=== PATIENT | male | born 1980 | race Two or more races ===

== ENCOUNTER 2023-08-11 13:51 | Inpatient (IN) | payer OTHER ==
[2023-08-11] MEDS ORDERED: COLLOIDAL OATMEAL 1 BAR EACH TP PRN (19:34)
[2023-08-11] MEDS ORDERED: ACETAMINOPHEN 325 MG TABLET (FP) PO PRN (19:34)
[2023-08-11] MEDS ORDERED: POLYETHYLENE GLYCOL (HEALTHYLAX) 3350 17 GM PACKET PO PRN (19:34)
[2023-08-11] MEDS ORDERED: NALOXONE HCL 0.4 MG/ML VIAL IM PRN (19:34)
[2023-08-11] MEDS ORDERED: IBUPROFEN 400 MG TABLET (FP) PO PRN (19:34)
[2023-08-11] MEDS ORDERED: MAG HYDROX/AL HYDROX/SIMETH 30 ML UNIT-DOSE CUP PO PRN (19:34)
[2023-08-11] MEDS ORDERED: P-EPHED 60MG/TRIPROLIDI 2.5MG TABLET PO PRN (19:34)
[2023-08-11] MEDS ORDERED: LOPERAMIDE HCL 2 MG CAPSULE PO PRN (19:34)
[2023-08-11] MEDS ORDERED: NALOXONE HCL (KLOXXADO) 8 MG SPRAY NS PRN (19:34)
[2023-08-11] MEDS ORDERED: guaiFENesin 600 MG TABLET.ER (FP) PO PRN (19:34)
[2023-08-11] MEDS ORDERED: BENZONATATE 200 MG CAPSULE PO PRN (19:34)
[2023-08-11] MEDS ORDERED: BENZOCAINE/MENTHOL (CHLORASEPTIC ) LOZENGE MM PRN (19:34)
[2023-08-11] MEDS ORDERED: MAGNESIUM HYDROX 2400MG/30ML ORAL SUSPENSION 30 ML CUP PO PRN (19:34)
[2023-08-11] MEDS: MELATONIN 5 MG TABLETS PO SCH (21:53)
[2023-08-11] MEDS: THIAMINE HCL 100 MG TABLET (FP) PO SCH (21:54)
[2023-08-11] MEDS ORDERED: TUBERCULIN PPD 5 TU/0.1ML VIAL ID ONE (22:21)
[2023-08-11] MEDS ORDERED: TUBERCULIN PPD 5 TU/0.1ML SYRINGE (IN PATIENT USE ONLY) ID ONE (23:35)
[2023-08-12] MEDS: PRENATAL VITAMINS W/ FOLIC ACID TABLET (FP) PO SCH (10:08)
[2023-08-12 10:53] LABS: HEMATOCRIT 41.6 % (35.4-49); HEMOGLOBIN 13.4 GM/dL (11.7-16.9); MCH 28.4 pg (25.7-33.7); MCHC 32.2 g/dl (32.0-35.9); MEAN CELL VOLUME 88.1 fl (80-96); MEAN PLT VOLUME 7.6 fl (7.5-11.1); PLATELET COUNT 286 10^3/uL (134-434); RBC 4.72 M/mm3 (4.00-5.60); RDW 14.2 % (11.9-15.9); WHITE BLOOD COUNT 5.5 K/mm3 (4.0-10.0)
[2023-08-12 10:55] LABS: POTASSIUM 4.8 mmol/L (3.5-5.1)
[2023-08-12 11:04] LABS: ALBUMIN 3.2 g/dl (3.4-5.0); BLOOD UREA NITROGEN 12.2 mg/dL (7-18); CALCIUM 9.2 mg/dL (8.5-10.1); CREATININE 0.9 mg/dL (0.55-1.3)
[2023-08-12 11:06] LABS: BILIRUBIN,TOTAL 0.3 mg/dL (0.2-1); TOT PROT 7.2 g/dl (6.4-8.2)
[2023-08-12 12:46] LABS: SYPHILIS W/ RPR CONF NON-REACTIVE (NONREACTIVE)
[2023-08-12 13:30] LABS: EPI CELLS 8 /uL (0-25.1); HYALINE CASTS 0 /uL (0-3.1); PH,URINE 8.5 (5.0-8.0); URINE APPEARANCE CLEAR; URINE BACTERIA 7 /uL (0-1359); URINE BILIRUBIN NEGATIVE (NEGATIVE); URINE COLOR YELLOW; URINE GLUCOSE (UA) NEGATIVE (NEGATIVE); URINE KETONE NEGATIVE (NEGATIVE); URINE LEUK ESTERASE TRACE (NEGATIVE); URINE NITRITE NEGATIVE (NEGATIVE); URINE PROTEIN NEGATIVE (NEGATIVE); URINE RBC 9 /uL (0-23.9); URINE WBC 46 /uL (0-25.8)
[2023-08-12] MEDS: MELATONIN 5 MG TABLETS PO SCH (21:40)
[2023-08-12] MEDS: THIAMINE HCL 100 MG TABLET (FP) PO SCH (21:41)
[2023-08-12] MEDS: hydrOXYzine PAMOATE 25 MG CAPSULE (FP) PO PRN (21:42)
[2023-08-13] MEDS ORDERED: methaDONE HCL 10 MG TABLET PO SCH (06:00)
[2023-08-13] MEDS: PRENATAL VITAMINS W/ FOLIC ACID TABLET (FP) PO SCH ×2 (10:18→10:19)
[2023-08-13] MEDS: IBUPROFEN 600 MG TABLET (FP) PO PRN (10:21)
[2023-08-13] MEDS: hydrOXYzine PAMOATE 25 MG CAPSULE (FP) PO PRN (10:21)
[2023-08-13] MEDS: THIAMINE HCL 100 MG TABLET (FP) PO SCH (21:28)
[2023-08-13] MEDS: hydrOXYzine PAMOATE 50 MG CAPSULE (FP) PO PRN (21:29)
[2023-08-14] MEDS: IBUPROFEN 600 MG TABLET (FP) PO PRN (09:52)
[2023-08-14] MEDS: PRENATAL VITAMINS W/ FOLIC ACID TABLET (FP) PO SCH (09:52)
[2023-08-14] MEDS: hydrOXYzine PAMOATE 50 MG CAPSULE (FP) PO PRN ×2 (09:52→21:42)
[2023-08-14] MEDS: THIAMINE HCL 100 MG TABLET (FP) PO SCH (21:40)
[2023-08-14] MEDS: SUVOREXANT 10 MG TABLET PO PRN (21:41)
[2023-08-15] MEDS: hydrOXYzine PAMOATE 50 MG CAPSULE (FP) PO PRN ×2 (06:13→21:34)
[2023-08-15] MEDS: IBUPROFEN 600 MG TABLET (FP) PO PRN (09:35)
[2023-08-15] MEDS: PRENATAL VITAMINS W/ FOLIC ACID TABLET (FP) PO SCH (09:35)
[2023-08-15] MEDS: THIAMINE HCL 100 MG TABLET (FP) PO SCH (21:33)
[2023-08-15] MEDS: SUVOREXANT 10 MG TABLET PO PRN (21:35)
[2023-08-16] MEDS: hydrOXYzine PAMOATE 50 MG CAPSULE (FP) PO PRN ×2 (06:44→21:44)
[2023-08-16] MEDS: PRENATAL VITAMINS W/ FOLIC ACID TABLET (FP) PO SCH (09:57)
[2023-08-16] MEDS: IBUPROFEN 600 MG TABLET (FP) PO PRN (09:58)
[2023-08-16] MEDS: SUVOREXANT 10 MG TABLET PO PRN (21:44)
[2023-08-16] MEDS: THIAMINE HCL 100 MG TABLET (FP) PO SCH (21:44)
[2023-08-17] MEDS: PRENATAL VITAMINS W/ FOLIC ACID TABLET (FP) PO SCH (09:42)
[2023-08-17] MEDS: hydrOXYzine PAMOATE 50 MG CAPSULE (FP) PO PRN ×2 (09:45→22:03)
[2023-08-17] MEDS: THIAMINE HCL 100 MG TABLET (FP) PO SCH (22:03)
[2023-08-18] MEDS: IBUPROFEN 600 MG TABLET (FP) PO PRN (09:32)
[2023-08-18] MEDS: PRENATAL VITAMINS W/ FOLIC ACID TABLET (FP) PO SCH (09:32)
[2023-08-18] MEDS: hydrOXYzine PAMOATE 50 MG CAPSULE (FP) PO PRN (21:47)
[2023-08-18] MEDS: THIAMINE HCL 100 MG TABLET (FP) PO SCH (21:47)
[2023-08-19] MEDS: PRENATAL VITAMINS W/ FOLIC ACID TABLET (FP) PO SCH (09:33)
[2023-08-19] MEDS: hydrOXYzine PAMOATE 50 MG CAPSULE (FP) PO PRN ×2 (09:35→21:37)
[2023-08-19] MEDS: IBUPROFEN 600 MG TABLET (FP) PO PRN (09:35)
[2023-08-19] MEDS: THIAMINE HCL 100 MG TABLET (FP) PO SCH (21:37)
[2023-08-20] MEDS: hydrOXYzine PAMOATE 50 MG CAPSULE (FP) PO PRN ×2 (06:23→21:37)
[2023-08-20] MEDS: PRENATAL VITAMINS W/ FOLIC ACID TABLET (FP) PO SCH (09:37)
[2023-08-20] MEDS: IBUPROFEN 600 MG TABLET (FP) PO PRN (09:38)
[2023-08-20] MEDS: THIAMINE HCL 100 MG TABLET (FP) PO SCH (21:37)
[2023-08-21] MEDS: hydrOXYzine PAMOATE 50 MG CAPSULE (FP) PO PRN ×3 (06:40→21:33)
[2023-08-21] MEDS: METHOCARBAMOL 500 MG TABLET PO PRN (09:47)
[2023-08-21] MEDS: PRENATAL VITAMINS W/ FOLIC ACID TABLET (FP) PO SCH (09:47)
[2023-08-21] MEDS: IBUPROFEN 600 MG TABLET (FP) PO PRN (12:48)
[2023-08-21] MEDS: THIAMINE HCL 100 MG TABLET (FP) PO SCH (21:33)
[2023-08-22] MEDS: hydrOXYzine PAMOATE 50 MG CAPSULE (FP) PO PRN ×2 (06:28→21:41)
[2023-08-22] MEDS: PRENATAL VITAMINS W/ FOLIC ACID TABLET (FP) PO SCH (10:04)
[2023-08-22] MEDS: METHOCARBAMOL 500 MG TABLET PO PRN (10:05)
[2023-08-22] MEDS: THIAMINE HCL 100 MG TABLET (FP) PO SCH (21:40)
[2023-08-23] MEDS: hydrOXYzine PAMOATE 50 MG CAPSULE (FP) PO PRN ×2 (06:31→22:07)
[2023-08-23] MEDS: METHOCARBAMOL 500 MG TABLET PO PRN ×2 (10:26→22:07)
[2023-08-23] MEDS: PRENATAL VITAMINS W/ FOLIC ACID TABLET (FP) PO SCH (10:26)
[2023-08-23] MEDS: THIAMINE HCL 100 MG TABLET (FP) PO SCH (22:07)
[2023-08-24] MEDS: hydrOXYzine PAMOATE 50 MG CAPSULE (FP) PO PRN ×2 (06:26→21:35)
[2023-08-24] MEDS: PRENATAL VITAMINS W/ FOLIC ACID TABLET (FP) PO SCH (09:56)
[2023-08-24] MEDS: IBUPROFEN 600 MG TABLET (FP) PO PRN (09:57)
[2023-08-24] MEDS: METHOCARBAMOL 500 MG TABLET PO PRN (09:57)
[2023-08-24] MEDS: THIAMINE HCL 100 MG TABLET (FP) PO SCH (21:33)
[2023-08-25] MEDS: hydrOXYzine PAMOATE 50 MG CAPSULE (FP) PO PRN (06:35)
[2023-08-25 07:19] VITALS: BP 117/74; PULSE 89; RESP 16; TEMP 97.2
[2023-08-25] MEDS: PRENATAL VITAMINS W/ FOLIC ACID TABLET (FP) PO SCH (09:15)
== END 2023-08-25 09:15 | disposition home or self-care (01) | DRG 772 ==
LOC: YASAS 13:51 → Y5N 20:49
PROVIDERS: ADMIT Allergy & Immunology; ATTEND Psychiatry & Neurology Pain Medicine
PROC: HZ42ZZZ Group Counseling for Substance Abuse Treatment, Cognitive-Behavioral (ICD-10-PCS; principal; 2023-08-11)
DX: F11.20 Opioid dependence, uncomplicated (principal); F14.20 Cocaine dependence, uncomplicated; F12.20 Cannabis dependence, uncomplicated; F17.210 Nicotine dependence, cigarettes, uncomplicated; F19.282 Other psychoactive substance dependence with psychoactive substance-induced sleep disorder; F19.280 Other psychoactive substance dependence with psychoactive substance-induced anxiety disorder; F19.24 Other psychoactive substance dependence with psychoactive substance-induced mood disorder; Z86.19 Personal history of other infectious and parasitic diseases; Z56.0 Unemployment, unspecified; Z59.00 Homelessness unspecified; Z88.0 Allergy status to penicillin
CPT/HCPCS: 36415; 80053; 81003; 85027; 86780; 86803; 87522; 87635

== ENCOUNTER 2024-02-23 16:39 | Inpatient (IN) | payer OTHER ==
[2024-02-23 17:26] VITALS: BMI 22.2
[2024-02-23] MEDS ORDERED: NICOTINE POLACRILEX 2 MG LOZENGE BC PRN (17:44)
[2024-02-23] MEDS ORDERED: NALOXONE HCL (KLOXXADO) 8 MG SPRAY NS PRN (17:44)
[2024-02-23] MEDS ORDERED: ONDANSETRON *ODT* 4 MG TABLET SL PRN (17:44)
[2024-02-23] MEDS ORDERED: BENZOCAINE/MENTHOL (CHLORASEPTIC ) LOZENGE MM PRN (17:44)
[2024-02-23] MEDS ORDERED: guaiFENesin 600 MG TABLET.ER (FP) PO PRN (17:44)
[2024-02-23] MEDS ORDERED: NALOXONE HCL 0.4 MG/ML VIAL IM PRN (17:44)
[2024-02-23] MEDS ORDERED: DICYCLOMINE HCL 10 MG CAPSULE PO PRN (17:44)
[2024-02-23] MEDS ORDERED: NICOTINE POLACRILEX 2 MG GUM BUC PRN (17:44)
[2024-02-23] MEDS ORDERED: LOPERAMIDE HCL 2 MG CAPSULE PO PRN (17:44)
[2024-02-23] MEDS ORDERED: ACETAMINOPHEN 325 MG TABLET (FP) PO PRN (17:44)
[2024-02-23] MEDS ORDERED: MAG HYDROX/AL HYDROX/SIMETH 30 ML UNIT-DOSE CUP PO PRN (17:44)
[2024-02-23] MEDS ORDERED: IBUPROFEN 600 MG TABLET (FP) PO PRN (17:44)
[2024-02-23] MEDS ORDERED: P-EPHED 60MG/TRIPROLIDI 2.5MG TABLET PO PRN (17:44)
[2024-02-23] MEDS ORDERED: BISMUTH SUBSALICYLATE 524 MG/30 ML PO PRN (17:44)
[2024-02-23] MEDS ORDERED: MAGNESIUM HYDROX 2400MG/30ML ORAL SUSPENSION 30 ML CUP PO PRN (17:44)
[2024-02-23] MEDS ORDERED: BENZONATATE 200 MG CAPSULE PO PRN (17:44)
[2024-02-23] MEDS ORDERED: IBUPROFEN 400 MG TABLET (FP) PO PRN (17:44)
[2024-02-23] MEDS ORDERED: POLYETHYLENE GLYCOL (HEALTHYLAX) 3350 17 GM PACKET PO PRN (17:44)
[2024-02-23] MEDS: MELATONIN 5 MG TABLETS PO SCH (23:34)
[2024-02-23] MEDS: THIAMINE 100 MG TABLET PO SCH (23:35)
[2024-02-24] MEDS ORDERED: methaDONE HCL 10 MG TABLET PO ONE (08:35)
[2024-02-24] MEDS: PRENATAL VITAMINS W/ FOLIC ACID TABLET (FP) PO SCH (09:24)
[2024-02-24] MEDS: diazePAM 5 MG TABLET PO SCH (10:13)
[2024-02-24] MEDS: METHOCARBAMOL 500 MG TABLET PO PRN (22:03)
[2024-02-25] MEDS ORDERED: methaDONE HCL 10 MG TABLET PO SCH (06:00)
[2024-02-26] MEDS: diazePAM 5 MG TABLET PO SCH (05:29)
[2024-02-26] MEDS: diazePAM 5 MG TABLET PO PRN (09:09)
[2024-02-26 17:04] LABS: POTASSIUM 4.7 mmol/L (3.5-5.1)
[2024-02-26 17:08] LABS: HEMATOCRIT 41.8 % (35.4-49); HEMOGLOBIN 13.8 GM/dL (11.7-16.9); MCH 28.7 pg (25.7-33.7); MEAN CELL VOLUME 86.9 fl (80-96); MEAN PLT VOLUME 8.1 fl (7.5-11.1); PLATELET COUNT 263 10^3/uL (134-434); RBC 4.81 M/mm3 (4.00-5.60); RDW 14.5 % (11.9-15.9)
[2024-02-26 17:09] LABS: ALBUMIN 3.3 g/dl (3.4-5.0); BLOOD UREA NITROGEN 15.1 mg/dL (7-18); CALCIUM 9.3 mg/dL (8.5-10.1)
[2024-02-26 17:13] LABS: BILIRUBIN,TOTAL 0.2 mg/dL (0.2-1)
[2024-02-27] MEDS: diazePAM 5 MG TABLET PO SCH (05:29)
[2024-02-27 08:39] VITALS: BP 114/76; PULSE 61; RESP 18; TEMP 97.7
[2024-02-28] MEDS ORDERED: diazePAM 5 MG TABLET PO ONE (06:00)
== END 2024-02-27 09:50 | disposition home or self-care (01) | DRG 773 ==
LOC: YASAS 16:39 → Y6N 18:10
PROVIDERS: ADMIT Allergy & Immunology; ATTEND Surgery
PROC: HZ2ZZZZ Detoxification Services for Substance Abuse Treatment (ICD-10-PCS; principal; 2024-02-23)
DX: F10.230 Alcohol dependence with withdrawal, uncomplicated (principal); F11.20 Opioid dependence, uncomplicated; F14.20 Cocaine dependence, uncomplicated; F13.20 Sedative, hypnotic or anxiolytic dependence, uncomplicated; F17.210 Nicotine dependence, cigarettes, uncomplicated; F41.9 Anxiety disorder, unspecified; Z86.19 Personal history of other infectious and parasitic diseases; Z88.0 Allergy status to penicillin
CPT/HCPCS: 36415; 80053; 80305; 85027; 86780